=== PATIENT | female | born 1960 | race Caucasian/White ===

== ENCOUNTER 2019-10-08 17:43 | Emergency (ER) | payer MEDICAID, MEDICARE ==
[~2019-10-08] VITALS: Ht 152.4 cm; Wt 89.4 kg
[2019-10-08 18:00] VITALS: BP 173/96
--- NOTE | 2019-10-08 18:25 | NUR ---
PT PRESENTED TO ED D/T LEFT EYE SWELLING X 4 DAYS. PT STATES WAS PLAYING AROUND WITH SON AND CORNER OR PILLOW HIT LEFT EYE. NOTICEABLE REDNESS AND SWELLING TO LEFT EYE.
--- NOTE | 2019-10-08 18:53 | NUR ---
REPORT FROM STEFFI KELLY. ASSUMING CARE AT THIS TIME.
--- NOTE | 2019-10-08 19:12 | NUR ---
DR. NAJERA TO BS FOR ASSESSMENT. ORDERS RECEIVED. PIV ESTABLISHED AND LABS DRAWN. PT TOLERATED WELL. TUBES GIVEN TO BROILER MANAGER FOR TRANSFER TO LAB. AWAITING LAB RESULTS AND CT.
[2019-10-08 19:18] LABS: BASOPHILS # (AUTO) 0.08 x10^3/uL (0-0.1); BASOPHILS % (AUTO) 1 % (0-1); EOSINOPHILS # (AUTO) 0.16 x10^3/uL (0-0.4); EOSINOPHILS % (AUTO) 2 % (1-7); LYMPHOCYTES % (AUTO) 19 % (22-44); MD NO; MEAN CORPUSCULAR HGB CONC 32.4 g/dL (32.4-35.8); MEAN CORPUSCULAR VOLUME 83.5 fL (80-100); MEAN PLATELET VOLUME 8.3 fL (7.4-10.4); MONOCYTES # (AUTO) 0.76 x10^3/uL (0.2-0.8); MONOCYTES % (AUTO) 7 % (2-9); NEUTROPHILS # (AUTO) 7.55 x10^3/uL (1.8-6.8); NEUTROPHILS % (AUTO) 72 % (42-75); PLATELET COUNT 386 x10^3/uL (130-400); RED BLOOD COUNT 4.82 x10^6/uL (3.82-5.3); RED CELL DISTRIBUTION WIDTH 15.3 % (9.6-15.2)
[2019-10-08 19:28] LABS: ANION GAP 5 mmol/L (5-15); CALCIUM 9.3 mg/dL (8.5-10.1); CHLORIDE 106 mmol/L (98-107); CREATININE 0.85 mg/dL (0.55-1.02)
[2019-10-08] MEDS ORDERED: PROPARACAINE OPHTH 0.5%, 15ML EACHEYE ONE (19:30)
[2019-10-08] MEDS ORDERED: FLUORESCEIN OPHTHALMIC 1 MG STRIP EACHEYE ONE (19:30)
[2019-10-08] MEDS ORDERED: FLUORESCEIN OPHTHALMIC 1 MG STRIP ONE (19:34)
[2019-10-08] MEDS ORDERED: PROPARACAINE OPHTH 0.5%, 15ML ONE (19:34)
[2019-10-08] MEDS ORDERED: LIDOCAINE 1%, 2ML INFIL ONE (21:00)
[2019-10-08] MEDS ORDERED: AMPICILLIN/SULBACTAM 3 GM in SODIUM CHLORIDE 0.9% 100 ML IV ONE (21:30)
[2019-10-08] MEDS ORDERED: LIDOCAINE-MPF 1%, 5ML ONE (21:32)
[2019-10-09] MEDS ORDERED: OMNIPAQUE 350 MG/ML, 100ML BOTTLE ONE (00:09)
== END 2019-10-08 22:29 | disposition home or self-care (01) ==
LOC: ED 20:08
DX: L03.213 Periorbital cellulitis (principal); H05.012 Cellulitis of left orbit
CPT/HCPCS: 36415; 67700; 70481; 80048; 85025; 87070; 87077; 87186; 87205; 96365; 99285; J0295; J3490; Q9967